=== PATIENT | female | born 1950 | race Caucasian/White ===

== ENCOUNTER 2016-10-04 11:46 | Emergency (ER) | payer OTHER, MEDICARE, MEDICAID ==
[~2016-10-04] VITALS: Ht 167.6 cm; Wt 70.0 kg
[~2016-10-04 11:46] MED LIST: ASPI-378 PO; ATEN50TA7 PO; CLOP75TA14 PO; FOL1 PO; HYDR1TAB69 PO; ISOS60TA PO; PRO20 PO; ROSU40TA PO
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
[2016-10-04] MEDS ORDERED: HYDROmorphone 0.5 mg/0.5 mL iSecure Syringe IVPUSH PRN (12:05)
[2016-10-04] MEDS ORDERED: Ondansetron 2 mg/mL 2 mL Inj IVPUSH PRN (12:05)
[2016-10-04 12:18] LABS: BASOPHILS % (AUTO) 0.4 % (0-3); EOSINOPHILS % (AUTO) 2.2 % (0-5); MONOCYTES % (AUTO) 5.9 % (4-12); Mean Corpuscular Hemoglobin 30.9 pg (27.0-35.0); Mean Corpuscular Volume 97.8 fL (81-100); NEUTROPHILS % (AUTO) 64.9 % (40-74); Platelet Count 253 bil/L (150-400)
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
[2016-10-04 12:31] LABS: INR 0.91 ratio
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
[2016-10-04 13:06] LABS: TROPONIN T < 0.010 ug/L (0.0-0.011)
[2016-10-04] MEDS ORDERED: HYDROcodone-APAP 5-325 mg Tablet PO ONE (13:25)
[2016-10-04] MEDS ORDERED: HYDR-3090 PO (14:18)
== END 2016-10-04 14:30 | disposition home or self-care (01) ==
LOC: SED 11:46 → EDBD 11:46 → SED 14:30
DX: S23.29XA Dislocation of other parts of thorax, initial encounter (principal); S16.1XXA Strain of muscle, fascia and tendon at neck level, initial encounter; S51.012A Laceration without foreign body of left elbow, initial encounter; V43.52XA Car driver injured in collision with other type car in traffic accident, initial encounter; Y93.89 Activity, other specified; Y92.410 Unspecified street and highway as the place of occurrence of the external cause; Y99.8 Other external cause status; I10 Essential (primary) hypertension; E78.5 Hyperlipidemia, unspecified; Z90.710 Acquired absence of both cervix and uterus; Z85.41 Personal history of malignant neoplasm of cervix uteri; Z95.1 Presence of aortocoronary bypass graft; Z79.82 Long term (current) use of aspirin; Z79.899 Other long term (current) drug therapy

== ENCOUNTER 2017-01-04 13:42 | Inpatient (IN) | payer MEDICARE, MEDICAID ==
[~2017-01-04] VITALS: Ht 160 cm; Wt 61.2 kg
[~2017-01-04 13:42] MED LIST changes: +HYDR-3090 PO
[2017-01-04 13:50] VITALS: BP 83/51; PULSE 69; RESP 15; O2SAT 97
--- NOTE | 2017-01-04 14:08 | ED.REPORT ---
HPI-Abd Pain F 40 and Over Date of Service Jan 04, 2017 ED Provider: Donell Wilson MD The pt is a 66 y/o female with a hx of ischemic heart disease s/p CABG, hypertension, dyslipidemia, and renal insufficiency and cervical cancer (with urostomy bag) who presents to the ED complaining of decreased urine output for the last 2 weeks. Associated sx include dark urine, back pain, nausea, lack of appetite and fluid intake and unintentional weight loss. The pt lost around 60 pounds in the last 6-8 months. She denies fever, chills, cough, shortness of breath, chest pain and lower extremity edema. The pt is not experiencing any pain or discomfort in the ED. Nursing Notes Stated Complaint: POSS KIDNEY ISSUES Chief Complaint: Female Abdominal Pain Nursing Notes Reviewed: Yes (Med[facility], meds not reconciled) Allergies: Coded Allergies: No Known Allergies (Verified Allergy, Unknown, 01/04/17) Uncoded Allergies: No Known Allergies (Allergy, Unknown, 12/17/03) Scheduled Alendronate Sodium (Fosamax) 70 Mg Tablet 70 MG PO WEEKLY Aspirin-Expunged Drug, Do Not Renew! (Aspirin-Expunged Drug, Do Not Renew!) 81 Mg Tablet.dr 81 MG PO DAILY Atenolol-Expunged Drug, Do Not Renew! (Atenolol-Expunged Drug, Do Not Renew!) 50 Mg Tablet 25 MG PO DAILY Atorvastatin (Lipitor) 80 Mg Tablet 80 MG PO DAILY Cholecalciferol (Vitamin D3) (Vitamin D3) 1,000 Unit Tab.chew 1,000 UNIT PO DAILY Clopidogrel-Expunged Drug, Do Not Renew! (Plavix-Expunged Drug, Do Not Renew!) 75 Mg Tablet 75 MG PO DAILY FLUoxetine-Expunged Drug, Do Not Renew! (FLUoxetine-Expunged Drug, Do Not Renew! ) 20 Mg Capsule 20 MG PO BID Memantine (Namenda) 10 Mg Tablet 10 MG PO BID Omeprazole (Omeprazole) 20 Mg Capsule.dr 20 MG PO BID Scheduled PRN Naproxen Sodium (Aleve) 220 Mg Capsule 220 MG PO DAILY PRN PRN For Pain General Time Seen by MD: 14:07 Chief Complaint Other (decreased urinary output) Hx Obtained From: Patient Arrived By: Walk-in Sudden in Onset?: No Onset Occurred: More than a week ago... 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 Past Medical History Chronic back pain Hypertension Ischemic heart disease s/p CABG Dyslipidemia Cervical cancer s/p hysterectomy and radiation - complicated by damage to her bladder which lead to a cystectomy and ileal conduit formation Renal insufficiency Reports: Coronary artery disease, Hyperlipidemia, Hypertension Past Surgical History CABG Hysterectomy Cystectomy and ileal conduit formation Family History Noncontributory Smoking History Never Smoker Social History Alcohol Use: Denies alcohol use Other Social History: Good social support, Local resident Ambulatory Status Independent Review of Systems Reports: dark urine Reports: lack of appetite Reports: unintentional weight loss Constitutional: Denies: Chills, Fever Respiratory: Denies: Shortness of breath Cardiovascular: Denies: Chest pain, Edema GI: Reports: Nausea Female: Reports: Urination decreased Musculoskeletal: Reports: Back pain Complete sys rev & neg: except as marked. Physical Exam Vital Signs Vital Signs (First) Date Time Temp Pulse Resp B/P Pulse Ox O2 Delivery O2 Flow Rate FiO2 01/04/17 13:50 36.5 69 15 83/51 97 Room Air Initial VS: Reviewed, Vital signs abnormal (hypotensive) General/Constitutional: Awake, Alert, Well appearing, Cooperative, Not toxic appearing No anasarca Not diaphoretic Respiratory / Chest: Atraumatic, Breath sounds NL, Breath sounds = bilat, No respiratory distress, No rales, No rhonchi, No wheezing Cardiovascular: Regular rhythm, Heart sounds NL, No gallop, No murmurs, No rubs Heart Rate / Rhythm: Positive: Bradycardia Decreased pulses in all extremities Abdomen: Atraumatic, Soft, Non-tender, No guarding, No rebound Back: Atraumatic, Full range of motion, Painless range of motion ENT: Atraumatic, Airway patent, Pharynx NL Mouth: Positive: Mucous membranes dry Skin: Atraumatic, Color NL, No rash, Warm, Dry Color / Condition: Positive: Skin turgor poor Female Genitourinary: Exam deferred Urostomy draining clear urine on the right side of the abdomen Interpretation & Diagnostics PROCEDURE: CT CHEST, ABDOMEN AND PELVIS WITHOUT CONTRAST ([id number]) IMPRESSION: 1. No pulmonary lesions to suggest primary malignancy or metastases. 2. Status post cystectomy with right lower quadrant ileal conduit. Mild bilateral hydroureteronephrosis is presumably secondary to vesicoureteral reflux. Bilateral perinephric inflammatory fat stranding may suggest pyelonephritis in the appropriate clinical setting. 3. Multiple small dependent calcified gallstones. 4. Short segment 4.1 x 3.2 cm left eccentric infrarenal abdominal aortic aneurysm. 5. Nonacute L1 inferior endplate osteoporotic compression fracture, with moderate to severe height loss, as well as bilateral nonacute insufficiency fractures around the sacroiliac joints, and scattered bilateral posterior rib fractures. Dictated by: Blue Garcia M.D. on 01/04/2017 at 17:19 Approved by: Blue Garcia M.D. on 01/04/2017 at 17:33 Lab Results Interpretation Result Diagram: 01/04/17 1410 01/04/17 1410 Test 01/04/17 14:10 01/04/17 14:18 White Blood Count 10.4th/mm3 (3.8-10.1) Red Blood Count 3.99mil/mm3 (3.90-5.20) Hemoglobin 12.3g/dL (12.0-15.6) Hematocrit 37.2% (35.0-46.0) Mean Corpuscular Volume 93.2fL (81-100) Mean Corpuscular Hemoglobin 30.8pg (27.0-35.0) Mean Corpuscular Hemoglobin Concent 33.1% (32.0-37.0) Red Cell Distribution Width 14.6% (12.3-15.4) Platelet Count 288bil/L (150-400) Neutrophils (%) (Auto) 66.6% (40-74) Lymphocytes (%) (Auto) 25.2% (14-46) Monocytes (%) (Auto) 6.4% (4-12) Eosinophils (%) (Auto) 1.4% (0-5) Basophils (%) (Auto) 0.2% (0-3) Sodium Level 132mEq/L (134-144) Potassium Level 4.0mEq/L (3.5-5.2) Chloride Level 102mEq/L (97-108) Carbon Dioxide Level 13mmol/L (18-29) Blood Urea Nitrogen 60mg/dL (8-27) Creatinine 1.99mg/dL (0.57-1.00) Estimat Glomerular Filtration Rate 36mL/min (>59) Glucose Level 103mg/dL (60-99) Lactic Acid Level 1.2mmol/L (0.4-2.0) Calcium Level 9.8mg/dL (8.5-10.1) Total Bilirubin 0.4mg/dL (0.0-1.2) Aspartate Amino Transf (AST/SGOT) 17U/L (0-50) Alanine Aminotransferase (ALT/SGPT) 11U/L (0-32) Alkaline Phosphatase 113U/L (25-165) Total Creatine Kinase 36U/L (21-215) Total Protein 8.2g/dL (6.4-8.4) Urine Color Bloody (YELLOW) Urine Appearance Cloudy (CLEAR,HAZY) Urine pH 9.0 (5.0-8.0) Urine Specific Sharps 1.005 (1.003-1.035) Urine Protein 100mg/dL (NEG,TRACE) Urine Glucose (UA) Negativemg/dL (NEGATIVE) Urine Ketones Negativemg/dL (NEGATIVE) Urine Occult Blood Small (NEGATIVE) Urine Nitrite Positive (NEGATIVE) Urine Bilirubin Negative (NEGATIVE) Urine Urobilinogen Normalmg/dL (NORMAL) Urine Leukocyte Esterase Large (NEGATIVE) Urine RBC 0-2/hpf (0-2) Urine WBC 0-5/hpf (0-5) Urine Epithelial Cells Occasional/hpf (NONE-MOD) Urine Crystals Triple phosphate Urine Bacteria Many/hpf (NONE-FEW) Urine Hyaline Casts Occasional/lpf (NONE) Urine Granular Casts None seen (NONE SEEN) Urine Waxy Casts None seen (NONE SEEN) Urine Red Blood Cell Casts None seen (NONE SEEN) Urine White Blood Cell Casts None seen (NONE SEEN) Urine Mucus Present (None Seen) Urine Trichomonas None seen (NONE SEEN) Urine Yeast None (NONE SEEN) Urinalysis Comment Amorphous sediment Urine Culture Reflexed Indicated Lab Results Interpretation: Anion Gap = 17 CBC normal CMP moderate on and I gap acidosis, new renal insufficiency Lactic acid normal UA no white cells, multiple other markers-but is from the urostomy bag, so awaiting culture ECG Interpretation ECG Interpretation: Sinus bradycardia. Rate 54. No signs of hyperkalemia Abnormal R wave progession Time: 14:30 Interpreted by: ED physician Re-Eval/Medical Decision Med Decision/Clinical Course This is a 66-year-old female smoker who presents complaining of an unintentional 60 pound weight loss in 3 months followed by decreased urostomy output over the past week with global weakness and anorexia. She denies fevers chills, nausea vomiting, diarrhea. Presyncope weakness, dark urine and markedly decreased output that she normally and at the urostomy bag 2-5 times a day is now down to less than 1, family's increasing concern advised that she come in. She contacted her PCP is referred to the emergency department. Arrival she is noted be mildly hypotensive, but lying supine she states she has no complaints she just feels tired all the time. He clinically appears mildly dehydrated Mucous membranes. Lungs are clear, heart tones normal. Her urostomy is draining clear urine-is not overtly dark here. Abdomen is soft and nontender. She has slightly decreased skin turgor, no anasarca or peripheral edema is appreciated. The patient given hypotension is receiving some IV fluids. Clinically she appears dehydrated-although I am unable to get much of a history besides mild anorexia although, by significant and acute and unintentional weight loss. Lab work reveals a new renal failure and moderate metabolic acidosis that is non- anion gap. There is receiving IV fluids and her blood pressures improving. A noncontrast chest abdomen pelvis is being obtained given the marked weight loss and dehydration evaluate for the potential for malignancy or additional consultations. Severity of the patient's symptoms, hypertension, renal insufficiency the plan is admission for further hydration and evaluation. Nephrology consultation is being obtained as they are ready follows patient beforehand for history of some renal insufficiency. The case is discussed with Dr. Donaldson. The patient's being admitted to the hospitalist service. Source of Hx: Old records Re-Evaluation/Progress : Time of Eval: 14:57 Re-Evaluation/Progress Note: Rechecked pt. Discussed lab results, imaging results,diagnosis and plan to admit. Pt understands and agrees with the plan for admission. All questions addressed. Consultation #1: Referral / Consult Name: Rasta Donaldson DO Consulted With: Nephrology Call Returned at: 14:55 Sample Stitcher: Will see patient, Agrees with eval, Agrees with plan Consultation #2: Referral / Consult Name: Antonio Damon MD Consulted With: Hospitalist Call Returned at: 15:31 Sample Stitcher: Will see patient, Agrees with eval, Agrees with plan, Accepts admit Counseled Regarding: Diagnosis, Lab results, Need for admission Discharge & Departure Primary Impression: Acute renal insufficiency Additional Impressions: Hypotension Hypotension type: unspecified hypotension type Qualified Code: I95.9 - Hypotension, unspecified Dehydration Unintentional weight loss Disposition: ADMITTED TO HOSPITAL Discharge Condition All VS Reviewed: Yes Referrals: Yosvany Patel MD (PCP) Scribe Attestation Portions of this note were transcribed by Jeny Gamez. I,, personally performed the history, physical exam and medical decision-making;I reviewed and confirmed the accuracy of the information in the transcribed note. Signed by Rik Cardoso. 01/04/17 copies to: Yosvany Patel MD, Matthew F MD Jan 04, 2017 14:08 Jeny Gamez Jan 04, 2017 14:17
[2017-01-04] MEDS ORDERED: 0.9% Sodium Chloride 1,000 ML IV ONE (14:15)
[2017-01-04 14:21] LABS: BASOPHILS % (AUTO) 0.2 % (0-3); EOSINOPHILS % (AUTO) 1.4 % (0-5); MONOCYTES % (AUTO) 6.4 % (4-12); Mean Corpuscular Hemoglobin 30.8 pg (27.0-35.0); Mean Corpuscular Volume 93.2 fL (81-100); NEUTROPHILS % (AUTO) 66.6 % (40-74); Platelet Count 288 bil/L (150-400)
[2017-01-04 14:46] LABS: APPEARANCE,URINE CLOUDY (CLEAR,HAZY); COLOR,URINE BLOODY (YELLOW); OCCULT BLOOD,URINE SMALL (NEGATIVE); UROBILINOGEN,URINE NORMAL (NORMAL)
[2017-01-04 15:04] VITALS: BP 98/45; PULSE 60; RESP 17; O2SAT 98
[2017-01-04] MEDS ORDERED: CHOL10008 PO (15:21)
[2017-01-04] MEDS ORDERED: NAPR220C11 PO (15:21)
[2017-01-04] MEDS ORDERED: NAM10 PO (15:21)
[2017-01-04] MEDS ORDERED: ALEN70TA2 PO (15:28)
[2017-01-04] MEDS ORDERED: OMEP20CA11 PO (15:28)
[2017-01-04] MEDS ORDERED: ATOR80TA PO (15:28)
[2017-01-04] MEDS ORDERED: Alum-Mag Hydrox-Simeth 30 mL Suspension PO PRN (15:50)
[2017-01-04] MEDS ORDERED: Polyethylene Glycol (PEG) 17 Gm Powder PO PRN (15:50)
[2017-01-04] MEDS ORDERED: Ondansetron 2 mg/mL 2 mL Inj IVPUSH PRN (15:50)
[2017-01-04] MEDS ORDERED: 0.9% Sodium Chloride 500 ML IV ONE (15:50)
[2017-01-04] MEDS: 0.9% Sodium Chloride 1,000 ML IV SCH ×2 (16:10→23:07)
[2017-01-04 16:13] VITALS: BP 99/46; PULSE 53; RESP 17; O2SAT 98
--- NOTE | 2017-01-04 16:21 | PCM.HPMED ---
Subjective Date of Service Jan 04, 2017 Primary Provider: Admitting Physician: Antonio Damon MD Primary Care Physician: Yosvany Patel MD Attending Physician: Antonio Damon MD Chief Complaint: Weight loss and weakness Coffee-colored urine History of Present Illness: 66-year-old female with history of chronic nicotine dependence, postconcussive syndrome with memory loss, ischemic heart disease s/p CABG 2, hypertension, dyslipidemia, chronic kidney disease stage IIIB, and history of cervical cancer s/p hysterectomy and radiation with damage to her bladder leading to cystectomy with urinary diversion who presents to emergency department due to decreasing coffee colored urine output has been occurring for the last 2-3 weeks. Patient' s is the main historian, and her presentation to the emergency department today is at his request due to duration and progression of symptoms. Patient also endorses back pain, nausea, prolonged anorexia for 2 weeks, and overall weight loss of 60 pounds over the last 2 years, with 15-20 pounds loss in the last 3 months. Patient also states that she been feeling progressively weaker and dizzy. She denies fever, chills, chest pain, shortness of breath, and lightheadedness, as well as denying new onset rash.. Patient has been on statin for at least 2 years of his first episode of coffee colored urine she has had. Notably she denies joint or diffuse muscle aches. Patient sees Dr. Waters as a urologist, with plans for contrast x-ray, urinary tract, and retroperitoneal ultrasound though ordered 2 days ago but have not yet been completed. Patient does not have a clinical account liaison. Patient has become more confused lately and it is clear whether the patient is taking the appropriate medications. In the emergency department, blood work revealed a very mild leukocytosis without shift, creatinine of 1.99 with a baseline of 1.27, and mild metabolic acidosis. UA appeared bloody and was positive for blood but without RBCs, also noted crystals, and elevations of leukocyte esterase and nitrate. CT of the abdomen is ordered and is currently pending. Blood and urine cultures were obtained. Review of Systems: Complete review of systems performed; pertinent positives and negatives per history of present illness, all other systems reviewed and are negative Allergies Coded Allergies: No Known Allergies (Verified Allergy, Unknown, 01/04/17) Uncoded Allergies: No Known Allergies (Allergy, Unknown, 12/17/03) Home Medications Alendronate Sodium (Fosamax) 70 Mg Tablet 70 MG PO WEEKLY Aspirin-Expunged Drug, Do Not Renew! (Aspirin-Expunged Drug, Do Not Renew!) 81 Mg Tablet. 81 MG PO DAILY Atenolol-Expunged Drug, Do Not Renew! (Atenolol-Expunged Drug, Do Not Renew!) 50 Mg Tablet 25 MG PO DAILY Atorvastatin (Lipitor) 80 Mg Tablet 80 MG PO DAILY Cholecalciferol (Vitamin D3) (Vitamin D3) 1,000 Unit Tab.chew 1,000 UNIT PO DAILY Clopidogrel-Expunged Drug, Do Not Renew! (Plavix-Expunged Drug, Do Not Renew!) 75 Mg Tablet 75 MG PO DAILY FLUoxetine-Expunged Drug, Do Not Renew! (FLUoxetine-Expunged Drug, Do Not Renew! ) 20 Mg Capsule 20 MG PO BID Memantine (Namenda) 10 Mg Tablet 10 MG PO BID Omeprazole (Omeprazole) 20 Mg Capsule. 20 MG PO BID Naproxen Sodium (Aleve) 220 Mg Capsule 220 MG PO DAILY PRN PRN For Pain PMH Chronic back pain Hypertension Ischemic heart disease s/p CABG 2 in 2003 Cervical cancer s/p hysterectomy and radiation - complicated by damage to her bladder which lead to a cystectomy and ileal conduit formation in 2002 Hyperlipidemia Surgical History CABG 2004 Hysterectomy 2003 Cystectomy and ileal conduit formation 2002 Family History Father and paternal grandfather both of cancer Mother of cardiac disease in her 80s Social History Hx Alcohol Use: Yes (not since new 2008) Hx Substance Use: No Hx Tobacco Use: Yes (51 years) Smoking Status: Never Smoker Exam Vital Signs Vital Sign - Last Date Time Temp Pulse Resp B/P Pulse Ox O2 Delivery O2 Flow Rate FiO2 01/04/17 15:04 60 17 98/45 98 Room Air 01/04/17 13:50 36.5 Exam General: Pleasant, apathetic appearing female of stated age HEENT: PERRLA, EOMI, nonicteric, membranes dry; no JVD Lymph: No lymphadenopathy Cardio: Regular rate and rhythm no murmurs rubs or gallops Respiratory: CTA bilaterally, no wheezes, no crackles Abdomen: Soft, positive bowel sounds, nontender, nondistended Extremities: No edema, sensation intact, possible [id number] nails Psych: Seems apathetic Neuro: CN II through XII grossly intact, sensation intact throughout Skin: No rash Lab and Diagnostics Result Diagram: 01/04/17 1410 01/04/17 1410 X-Rays, CTs and MRIs CT abdomen/pelvis pending 12-lead ECG Sinus bradycardia at 54 Assessment & Plan 66-year-old female with history of chronic nicotine dependence, postconcussive syndrome with memory loss, ischemic heart disease s/p CABG 2, hypertension, dyslipidemia, chronic kidney disease stage IIIB, and history of cervical cancer s/p hysterectomy and radiation with damage to her bladder leading to cystectomy with urinary diversion who presents to emergency department due to decreasing coffee colored urine output has been occurring for the last 2-3 weeks. acute on chronic kidney disease stage IIIB with mild metabolic acidosis; present on admission; ongoing -Likely due to prerenal azotemia or, due to her smoking, concerning for RCC; was recently evaluated by urology who did not feel this was an obstructive issue -Patient's worsening kidney failure with coffee colored urine without RBCs in the sample, while on statin, is concerning for possible mild rhabdo or inflammatory myopathy -SPEP, CK -Renal ultrasound -Nephrology consult -Urine microscopy -2 L in the ED and another half liter on floor -Continue at 100 mL an hour for now -Patient also has naproxen at home although she is unclear on how much she is taken; hold all NSAIDs CAD status post CABG 2; present on admission; ongoing -Patient unable to state what she was on; CABG was performed 2003 -Plavix as an patient's med list this will be confirmed and then continued -Continue aspirin -Consider echo if signs of fluid overload Hypotension; stable -Patient presents with low blood pressure that response to fluids -2 L in the ED and another half liter on floor -Continue at 100 mL an hour for now -We will watch for fluid overload as patient is only 58 kg -Hold home atenolol Postconcussive syndrome with memory loss-continue memantine Hyperlipidemia-old atorvastatin Depression/anxiety-continue Prozac Osteoporosis-hold Fosamax due to low GFR History of cervical cancer with hysterectomy and bladder resection-monitor urine output Disposition: Patient is being admitted to inpatient status with expected length of stay greater than two midnights due to to severity of presentation, duration of treatment, and risks of adverse events disposition Full code Pain Evaluation: Adequate Pain Control Resuscitation Status: CPR: Attempt Resuscitation Attending Statement The patient was seen and examined together with Dr. Melvin on 01/04/2017 and I agree with the history, exam and plan as outlined in the note above. . Keanu Melvin DO Jan 04, 2017 16:21 Antonio Damon MD Jan 04, 2017 20:01
[2017-01-04] MEDS ORDERED: Heparin 5,000 Unit/mL Inj SUBQ SCH (16:30)
[2017-01-04 17:17] VITALS: BP 104/49; PULSE 52; RESP 19; O2SAT 98
[2017-01-04 17:25] VITALS: PULSE 47
--- NOTE | 2017-01-04 17:35 | DRSVH ---
PROCEDURE: CT CHEST, ABDOMEN AND PELVIS WITHOUT CONTRAST ([id number]) INDICATIONS: 66 year-old female with new renal failure, 60 pound weight loss, and tobacco use. TECHNIQUE: After the administration of oral contrast, 5 mm thick sections acquired from the lung apices to the s ymphysis pubis. 5 mm thick coronal and sagittal reformats acquired, with additional 7 mm coronal MIP reformats through the lungs. For radiation dose reduction, the following was used: automated expos ure control, adjustment of mA and/or kV according to patient size. COMPARISON: Outside [facility], CT, CT LUMBAR SPINE WO CON, 06/29/2015, 16:26. FINDINGS: Image quality: Excellent. CHEST: Lungs and pleura: No acute pulmonary opacities. There is scattered bibasilar pulmonary scarring. No pulmonary nodules or masses. No pleural effusions or pneumothorax. Central and peripheral airways a re patent are normal in caliber. Mediastinum: Heart size is normal, status post coronary artery bypass grafting. No pericardial effu seven. No mediastinal adenopathy by CT size criteria. Thoracic aorta and central pulmonary arteries are normal in size. Esophagus is normal in caliber. No hiatal hernia. Chest wall: No axillary or supraclavicular adenopathy by size criteria. Thyroid gland is normal in size. ABDOMEN: Solid organs: Liver and spleen are normal in size. Gallbladder contains multiple small dependent ca lcified gallstones. Pancreas is normal in contours. No adrenal nodules. Both kidneys are normal in size, with mild bilateral hydroureteronephrosis and perinephric inflammatory fat stranding. No kidne y stones. 2.6 cm anterolateral right renal cortical partially exophytic simple cyst is present. Peritoneum and bowel: Small and large bowel loops are normal in caliber and wall thickness. No free fluid or air. Nodes and vessels: No retroperitoneal or mesenteric adenopathy by size criteria. There is a short s egment left eccentric infrarenal abdominal aortic aneurysm, measuring 4.1 x 3.2 cm in axial dimension s. Inferior vena cava is normal in morphology. Miscellaneous: No ventral hernias. PELVIS: Genitourinary: The patient is status post cystectomy with right lower quadrant ileal conduit. Miscellaneous: No inguinal hernias or adenopathy. Bones: No suspicious bony lesions. No acute vertebral body compression fractures. There is nonacute L1 inferior endplate compression fracture, with up to 80% height loss. There is nonacute compression fracture involving the S1 superior endplate. There is grade 1 L5-S1 spondylolisthesis, secondary to facet joint degeneration. Several bilateral nonacute posterior rib fractures are present. There is bi lateral irregular sclerosis around the sacroiliac joints, consistent with nonacute healed insufficien cy fractures of the sacral wings and medial iliac bones. IMPRESSION: 1. No pulmonary lesions to suggest primary malignancy or metastases. 2. Status post cystectomy with right lower quadrant ileal conduit. Mild bilateral hydroureteronephros is is presumably secondary to vesicoureteral reflux. Bilateral perinephric inflammatory fat stranding may suggest pyelonephritis in the appropriate clinical setting. 3. Multiple small dependent calcified gallstones. 4. Short segment 4.1 x 3.2 cm left eccentric infrarenal abdominal aortic aneurysm. 5. Nonacute L1 inferior endplate osteoporotic compression fracture, with moderate to severe height lo ss, as well as bilateral nonacute insufficiency fractures around the sacroiliac joints, and scattered bilateral posterior rib fractures. Dictated by: Blue Garcia M.D. on 01/04/2017 at 17:19 Approved by: Blue Garcia M.D. on 01/04/2017 at 17:33
--- NOTE | 2017-01-04 18:11 | NUR ---
Admit Patient arrived in her room after 1700 day. Patient was awake and oriented X3. She denied having any pain or discomfort. Urostomy bag to gravity drain with larry, cloudy and strong smelling urine. Empted 450ml of urine out of urostomy bag on arrival to her room. UA was done in ED. Audible crackles at lung bases 1/3 up posterior IV changed to SL- patient was taking PO well at eh time- continue assessment.
[2017-01-04 21:56] VITALS: BP 86/52; PULSE 52; RESP 18; O2SAT 98
[2017-01-05] VITALS (10 sets, daily range): BP systolic 70–90; BP diastolic 42–50; PULSE 48–65; RESP 15–16; O2SAT 94–99
[2017-01-05] MEDS: 0.9% Sodium Chloride 1,000 ML IV SCH ×4 (02:07→19:13)
[2017-01-05 02:41] LABS: BASOPHILS % (AUTO) 0.3 % (0-3); EOSINOPHILS % (AUTO) 2.9 % (0-5); MONOCYTES % (AUTO) 6.9 % (4-12); Mean Corpuscular Hemoglobin 30.4 pg (27.0-35.0); Mean Corpuscular Volume 94.9 fL (81-100); NEUTROPHILS % (AUTO) 53.2 % (40-74); Platelet Count 210 bil/L (150-400)
[2017-01-05 03:16] LABS: Magnesium 2.1 mg/dL (1.6-2.6); Phosphorus 3.5 mg/dL (2.5-4.9)
[2017-01-05] MEDS ORDERED: 0.9% Sodium Chloride 1,000 ML IV ONE ×2 (03:40→23:35)
--- NOTE | 2017-01-05 06:25 | NUR ---
Hypotension On assessment BP was 86/52, continued Hypotension, Dr. Melvin notified and at bedside. Asymptomatic. Manual B/P - Rt arm 78/48 Lft arm 74/52 Apical pulse 50. IV fluids started, 1 L bolus then 125/hr. Pt. has Urostomy in place, and self manages. Pt. postive memory loss, niece at bedside for supportive care. Cooperative, indicates not further needs at this time. Rested with eyes closed, indicates no further needs at this time. Tele: SR 50. Report given to on coming RN.
--- NOTE | 2017-01-05 12:04 | NUR ---
Case Management: [facility] delivered and explained. Signed original placed in chart. Copy left at bedside. Allie Hoffman RN
--- NOTE | 2017-01-05 12:17 | DRSVH ---
PROCEDURE: US RENAL SONOGRAM INDICATIONS: Poss RCC TECHNIQUE: Real-time scanning was performed of the kidneys and bladder, with image documentation. COMPARISON: [facility], CT, CT CHEST ABD PELVIS WO CON, 01/04/2017, 16:39. FINDINGS: Kidneys: Kidneys are normal in size. Right kidney measures 8.7 cm long; left kidney measures 9.5 cm long. Right renal cortical thickness is 1.2 cm; left renal cortical thickness is 1.2 cm. Renal cor tical echotexture is normal. No hydronephrosis or nephrolithiasis. No suspicious solid mass lesions . Right renal cortical cyst present measuring roughly 24 mm. Bladder: Prior cystectomy with urostomy. Miscellaneous: No free pelvic fluid. IMPRESSION: Small right renal cyst otherwise grossly normal appearance of the kidneys bilaterally. Dictated by: Paddy RAO Interpreted: Minoo Vizcarra MD on 01/05/2017 at 10:03 Approved by: Minoo Vizcarra MD, PhD on 01/05/2017 at 12:14
--- NOTE | 2017-01-05 13:54 | CONS ---
[address] [address] CONSULTATION REPORT PATIENT: SUSAN GARY : 1950 MR#: [id number] ADMIT: 01/04/2017 JOB ID: [id number] DATE OF SERVICE: HISTORY: Mrs. Gary is a very pleasant but unfortunate, 66-year-old, white female, who was admitted to [facility] for dehydration and acute on chronic kidney injury. Renal consultation is being sought for further evaluation and management of her acute on chronic kidney disease. She has a history of cervical cancer for which she underwent a hysterectomy and radiation therapy about 17 years ago. She subsequently underwent a cystotomy with development of an ileal conduit. Her baseline creatinine is about 1.23. Her states that for about the last month she has been feeling quite lethargic, anorexic, very poor oral intake, occasional diarrhea, and has been progressively weaker. In the emergency department, her BUN and creatinine were 60 and 1.99, and she had evidence of a non anion gap metabolic acidosis. Her bicarbonate at that time was 13. Much of the history has been obtained from the patient's as she has a history of a traumatic brain injury and poor short term memory. Other than the ileal conduit, she has no history of recurrent urinary tract infections, renal lithiasis, hematuria, proteinuria, hepatitis, diabetes, but she does have a history of hypertension. She also has been taking Naprosyn intermittently prior to admission. In the emergency department, her urine showed a pH of 9 with positive protein small occult blood, nitrate and leukocyte esterase. There were 0-2 RBCs per high power field and 0-5 WBCs per high power field with evidence triple phosphate crystals and many bacteria, consistent with colonization. She has been aggressively hydrated and she has had a marked improvement in her BUN and creatinine today of 51 and 1.57. PAST MEDICAL HISTORY: Significant for cervical cancer requiring a hysterectomy with followup radiation therapy and subsequent cystotomy with an ileal conduit. There is also a history of hypertension, ischemic heart disease for which she has undergone a coronary artery bypass graft in the past, hyperlipidemia and chronic back pain. SURGICAL HISTORY: Consistent for hysterectomy and ileal conduit with cystectomy as detailed above. She has also had a coronary artery bypass graft. ALLERGIES: She is not allergic food or any medication. SOCIAL HISTORY: There is an extensive history of tobacco use, but she has not smoke since 2008. There is no history of any substance abuse or alcohol use. FAMILY HISTORY: Remarkable for cardiac disease and cancer. REVIEW OF SYSTEMS: As detailed above. Otherwise, she denies a history of any fever, chills, cough, wheezing, rash, arthralgias or headaches. PHYSICAL EXAMINATION: Revealed a pale, somewhat chronically ill-appearing 66-year-old, white female, who was alert and oriented x3, in no distress at time of my evaluation. Her blood pressure was 73/44 with a pulse rate of 86. HEENT examination is remarkable for pale sclerae. Neck is supple without adenopathy, thyromegaly or jugular venous distention. Lungs are clear to auscultation. Heart is regular and rhythmical with a soft systolic murmur. Abdomen is soft, without any tenderness, rebound, guarding, masses or hepatosplenomegaly. Extremities do not show any evidence of any clubbing, cyanosis or edema. Skin turgor is still is diminished and there is no evidence of any rashes. LABORATORY EXAMINATION: This morning her hemoglobin is 9.6. White cell count, red cell indices, platelet count and differential are normal. Her sodium this morning is 141, potassium 3.7, chloride of 115, bicarbonate 13, BUN and creatinine are 51 and 1.57. Her glucose is 102 and CPK was normal. IMPRESSION: 1. Dehydration secondary to poor oral intake, vomiting and diarrhea. 2. Acute on chronic kidney injury secondary to number one plus antiinflammatories. 3. Chronic interstitial nephritis. 4. Metabolic acidosis which appears to be multifactorial. 5. Likely colonization of her urinary tract system. RECOMMENDATION: I would like to continue her on her IV fluids. I would also like to add oral sodium bicarbonate tablets. I would also like to see her renal ultrasound, and we also ordered a serum protein electrophoresis. I would like to otherwise continue her on her current medication. Once again, I would like to thank you for allowing me to participate in the care of this most pleasant and interesting patient. I will be following her closely with you.
[2017-01-05] MEDS ORDERED: 0.9% Sodium Chloride 250 ML IV ONE (14:25)
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
--- NOTE | 2017-01-05 17:11 | DRSVH ---
PROCEDURE: X-RAY COMPLETE BONE SURVEY ([id number]) INDICATIONS: eval for multiple myeloma TECHNIQUE: Multiple views obtained of various bony structures as described below. COMPARISON: Outside Film, RG, PELVIS 1 OR 2VW , 6, 9:00. [facility] [place], CR, SPINE THORACOLUMBAR 2VW, 6, 15:31. Outside Film, RG, SPINE LUMB 2 OR 3VW , 07/03/2015, 10:00. [facility], CT, CT CHEST ABD PELVIS WO CON, 01/04/2017, 16:39. FINDINGS: Skull (lateral): No suspicious bony lesions. No fractures. Thoracic spine (AP, lateral): No suspicious bony lesions. No acute vertebral body compression fract ures. Multilevel degenerative changes and osteopenia. Lumbar spine (AP, lateral): No suspicious bony lesions. Moderate chronic L1 compression fracture un changed from prior thoracolumbar spine series dated September 2015. No acute vertebral body compression fractures. Multilevel degenerative changes and osteopenia. Pelvis (AP): No suspicious bony lesions. No fractures. Overlying soft tissues appear unremarkable. Sclerotic regions again noted involving the sacroiliac joints, consistent with nonacute healed insu fficiency fractures of the sacral wings and medial iliac bones. Right and left humeri (AP): No suspicious bony lesions. No fractures. Overlying soft tissues appea r unremarkable. Shoulder joint degeneration. Right and left femurs (AP): No suspicious bony lesions. No fractures. Overlying soft tissues appea r unremarkable. Hip joint degeneration. IMPRESSION: 1. No suspicious lytic bony abnormalities identified to suggest multiple myeloma. 2. L1 compression fracture unchanged. 3. Joint degeneration present throughout the axial and appendicular skeleton. 4. Irregular sclerotic regions again seen involving posteromedial iliac bones and the right acetabula r area. Possibly related to remote radiation therapy. Also consistent with nonacute healed insufficie ncy fractures which appears unchanged. Dictated by: Paddy Evans [facility] Interpreted: Bj Leone MD on 01/05/2017 at 16:46 Approved by: Bj Leone M.D. on 01/05/2017 at 17:08
--- NOTE | 2017-01-05 18:41 | NUR ---
Hypotension Pt continues to have low BPs and is asymptomatic with it, BP 73/44 this am, double checked on both arms, MD updated. 250mL bolus of NS ordered which Pt received, BP 90/49 when checked later in the shift.
--- NOTE | 2017-01-05 23:26 | NUR ---
Hypotension: second set of vitals BP noted to be 74/45 on the left arm. 74/ 43 on the right arm- pt asymptomatic denies any lightheaded/ dizziness. MD adames paged with information- no return call at this time. Addendum: 01/05/17 at 2336 by LUAN GALVEZ RN order received for 1 L bolus to be infused over 3 hrs. Addendum: 01/06/17 at 0507 by LUAN GALVEZ RN post 1 L NS BP 87/55. Pt tolerated bolus well. no s/s of resp distress.
[2017-01-06] VITALS (8 sets, daily range): BP systolic 87–93; BP diastolic 44–57; PULSE 50–59; RESP 16–20; O2SAT 93–98
[2017-01-06 03:00] LABS: BASOPHILS % (AUTO) 0.4 % (0-3); EOSINOPHILS % (AUTO) 4.1 % (0-5); MONOCYTES % (AUTO) 7.4 % (4-12); Mean Corpuscular Hemoglobin 30.4 pg (27.0-35.0); Mean Corpuscular Volume 96.5 fL (81-100); Platelet Count 190 bil/L (150-400)
[2017-01-06 03:27] LABS: Magnesium 1.9 mg/dL (1.6-2.6)
[2017-01-06] MEDS: 0.9% Sodium Chloride 1,000 ML IV SCH (06:03)
[2017-01-06] MEDS: Dextrose 5% 0.45% NaCl 1,000 ML IV SCH ×2 (08:54→20:50)
--- NOTE | 2017-01-06 11:48 | PCM.PNNEPH ---
Subjective Date of Service Jan 06, 2017 Subjective Patient's renal function continues to improve and is back to baseline. She states that she has no new complaints of some mild anorexia. Her blood pressures for evaluation 80-90 range. Last 24-hour she has had 4185 in and 1956 with 1100 out already today. Her sodium is 146, potassium 4.1, chloride 120, bicarbonate 14, BUN and creatinine were 38 and 1.14. Renal ultrasound did not show any increased echogenicity, obstruction, or masses. There was a simple renal cyst noted. Bone survey did not show any evidence of any metastatic lesions. Exam Vital Signs Vital Sign - Last Date Time Temp Pulse Resp B/P Pulse Ox O2 Delivery O2 Flow Rate FiO2 01/06/17 10:35 50 01/06/17 07:19 36.9 16 87/47 98 Room Air Intake and Output 01/05/17 01/05/17 01/06/17 Cumulative From/Thru 15:00 23:00 07:00 01/04/17 13:50 - 01/06/17 06:16 Intake Total 2645 ml 2479 ml 8614 ml Output Total 450 ml 1100 ml 2500 ml Balance 2195 ml 1379 ml 6114 ml Intake Oral 1200 ml 536 ml 2136 ml IV Total 1445 ml 1943 ml 6478 ml Output Urine Total 950 ml Stool Total 450 ml 1100 ml 1550 ml # Voids 2 3 5 # Bowel Movements 1 1 Exam Neck is supple without adenopathy, thyromegaly, or jugular venous distention. Lungs are clear to auscultation. Heart was regular and rhythmical with a soft systolic murmur. Abdomen is soft without any tenderness rebound guarding masses or hepatosplenomegaly. Extremities do not show any evidence of any clubbing cyanosis or edema. Skin turgor skull. Lab and Diagnostics Result Diagram: 01/06/17 0235 01/06/17 0235 Microbiology Blood cultures pending at 24 hours Urine growing mixed urogenital gerardo likely colonized X-Rays, CTs and MRIs CT CHEST, ABDOMEN AND PELVIS WITHOUT CONTRAST IMPRESSION: 1. No pulmonary lesions to suggest primary malignancy or metastases. 2. Status post cystectomy with right lower quadrant ileal conduit. Mild bilateral hydroureteronephrosis is presumably secondary to vesicoureteral reflux. Bilateral perinephric inflammatory fat stranding may suggest pyelonephritis in the appropriate clinical setting. 3. Multiple small dependent calcified gallstones. 4. Short segment 4.1 x 3.2 cm left eccentric infrarenal abdominal aortic aneurysm. 5. Nonacute L1 inferior endplate osteoporotic compression fracture, with moderate to severe height loss, as well as bilateral nonacute insufficiency fractures around the sacroiliac joints, and scattered bilateral posterior rib fractures. Dictated by: Blue Garcia M.D. on 01/04/2017 at 17:19 Approved by: Blue Garcia M.D. on 01/04/2017 at 17:33 . 12-lead ECG Sinus bradycardia at 54 Additional Diagnostics US RENAL SONOGRAM IMPRESSION: Small right renal cyst otherwise grossly normal appearance of the kidneys bilaterally. Dictated by: Paddy Evans [facility] Interpreted: Minoo Vizcarra MD on 01/05/2017 at 10:03 Approved by: Minoo Vizcarra MD, PhD on 01/05/2017 at 12:14 . Plan Impression Impression 1 acute kidney injury secondary to dehydration which is resolved #2 chronic interstitial nephritis #3 mild metabolic acidosis. Recommendations #1 patient appears to be at her baseline. I would taper her fluids and allow her to eat and drink as tolerated. At this point I will sign off the case. Should there be any problems or any questions between now and her discharge please do not hesitate to contact our service. Information kind consultation. Rasta Donaldson DO Jan 06, 2017 11:48
--- NOTE | 2017-01-06 14:32 | NUR ---
NUTRITION ASSESSMENT: ASSESS: 66 YO female admitted for renal failure secondary to dehydration. Consult received as pt MD states pt admits to very poor po x several months and there is a potential concern for refeeding syndrome. Pt also reports 60 lbs wt loss x 2 years (question accuracy based on EMR review, see below)with 15-20 lbs wt loss (does appear accurate per EMR review) over the past 3 months. Currently Glucose, Mg, Phos and K+ are within normal limits and pt is eating 100% of meals at this time. PMHx: Back pain, HTN, CAD s/p CABG x 2, cervical cancer s/p hysterectomy and radiation complicated by damage to bladder requiring cystectomy and ileal conduit formation. LABS: Reviewed. Na 146, BUN 38, Cr 1.1.4, Alb 2.8. MEDS: Reviewed. GI: BM x 1 (01/06) CURRENT WT: 61.3 kg. Admit wt: 58 kg (pt was dehydrated). Wt 10/04/16: 70 kg. Wt 01/2011: 78 kg per EMR review. DIET: Heart healthy. PO 100%. EST. NEEDS: 1064-3662 kcals (25-35 kcals/kg BW), 75-90 g protein (1.2-1.5 g/kg BW) NUTRITION DIAGNOSIS: 1.) Inadequate oral intake prior to admit related to decreased appetite as evidenced by approx 12.4% wt loss x 3 months. NUTRITION INTERVENTION: 1.) No nutritional intervention at this time. Currently PO intake should be adequate to meet pt est. needs to limit weight loss and promote wt gain. Refeeding labs are currently within normal limits. 2.) Consider adding supplements should pt po intake become inadequate to meet pt est. needs. MONITOR / EVAL: PO intake, labs, weights, nutritional status. Follow per moderate nutritional risk guidelines.
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
--- NOTE | 2017-01-06 17:35 | NUR ---
Social Work Note: Brief Note/Attempted Initial Assessment Data& Assessment: SW attempted to meet with pt at bedside to discuss discharge planning, pt was on the phone, SW to return tomorrow to complete initial assessment. Zohreh Gary is a 66 year old female admitted on 01/04/2017 for renal failure. Pt has Medicare and [facility] supplemental insurance coverage and sees Yosvany Patel MD for primary care. SW to follow up with pt to complete initial assessment and assess for any unmet needs. No MD orders identified at this time. SW to continue to follow. Plan: Anticipated discharge home via POV when medically ready. SW to follow up with pt to complete initial assessment and assess for any unmet needs. No MD orders identified at this time. SW to continue to follow. MARIXA Yee
--- NOTE | 2017-01-06 19:07 | NUR ---
Hypernatremia/BPs Pt's Na+ 146 today, MDs already aware, Pt's IVF changed from NS at 125mL/Hr to D5W 1/2NS at 100mL/Hr for 1 liter, oncoming NOC RN made aware. Pt's BP remains low, Pt asymptomatic, MDs aware, Pt already on IVF, BPs this shift: 87/47, 93/57, 91/50.
[2017-01-07 03:04] VITALS: BP 95/55; PULSE 62; RESP 18; O2SAT 95
[2017-01-07 05:57] VITALS: PULSE 62
[2017-01-07] MEDS: Dextrose 5% 0.45% NaCl 1,000 ML IV SCH (06:21)
[2017-01-07 07:11] VITALS: BP 98/59; PULSE 54; RESP 16; O2SAT 97
[2017-01-07 07:42] LABS: BASOPHILS % (AUTO) 0.3 % (0-3); EOSINOPHILS % (AUTO) 4.3 % (0-5); MONOCYTES % (AUTO) 7.4 % (4-12); Mean Corpuscular Hemoglobin 30.2 pg (27.0-35.0); Mean Corpuscular Volume 96.3 fL (81-100); NEUTROPHILS % (AUTO) 61.5 % (40-74); Platelet Count 188 bil/L (150-400)
--- NOTE | 2017-01-07 09:10 | NUR ---
[facility] signed MARIXA Can
--- NOTE | 2017-01-07 10:11 | NUR ---
Social Work: Initial Assessment / Readiness for d/c Data: Pt is a 66 y/o female admitted for renal failure. Pt's PCP is Dr Patel, pt's insurance is Medicare with [facility] supp. EMR reviewed, readmit score is 4. Pt discussed in rounds, MD states pt likely to d/c today. DRUM STRAIGHTENER met with pt at bedside, role explained. Pt states she lives in [place] with her , grand niece and great grand nephew in a single story home. She occasionally uses a cane, drives, has no hx of HH or SNF, no LTC or VA benefits, and is not a caregiver. Pt has been up and independent in the room. No d/c planning needs identified at this time. Pt plans to get a ride home with her when ready to d/c. DRUM STRAIGHTENER will continue to follow if needs arise. Assessment: Pt who is independent at baseline, currently capable of self care. Occasional use of cane at baseline. Plan: Pt will d/c home via POV, likely today per MD. No d/c planning needs identified at this time. DRUM STRAIGHTENER will continue to follow if needs arise. MARIXA Can Addendum: 01/07/17 at 1014 by JENNY DAVID Amended: Links added.
[2017-01-07 10:22] VITALS: PULSE 68
--- NOTE | 2017-01-07 11:54 | PCM.DIMED ---
Bharath Bennett DO 01/07/17 1154: Discharge Instructions Date of Service Jan 07, 2017 Dates of Hospitalization Jan 04, 2017 at 15:48 Discharge Diagnosis Discharge Diagnosis Unintentional weight loss, present on admission. Active. CAD status post CABG 2, present on admission. Ongoing. Hypotension, present on admission. Stable. Multiple fractures of uncertain cause or chronicity, present on admission. Stable. Inadequate protein intake, present on admission. Active. Acute on chronic kidney disease stage IIIB with mild metabolic acidosis, present on admission. Resolved. Hyperlipidemia Depression/anxiety Osteoporosis History of cervical cancer with hysterectomy and bladder resection-monitor urine output Diet Discharge Diet: No restrictions Activity Discharge Activity: No restrictions Call your provider Call your provider for: Fever or Chills, Shortness of breath, Bleeding, Chest pain, Vomitting, Excessive diarrhea, Weakness (unilateral) Patient Instructions Patient Instructions Please be mindful to have consistent nutritionally complete meals at least 3 times per day, please drink plenty of water; at least 2 liters of water daily. Follow-up plan Please follow up with your primary care provider within 2 weeks to further discuss your condition, and order follow up diagnostic testing. Follow-up Provider: Yosvany Patel MD Follow-up with PCP in: 2 weeks Antonio Damon MD 01/07/17 1602: Discharge Instructions Attending's Statement The patient was seen and examined together with Dr. Bennett on 01/07/2017 and I agree with the history, exam and plan as outlined in the note above. . Bharath Bennett DO Jan 07, 2017 11:54 Antonio Damon MD Jan 07, 2017 16:02
--- NOTE | 2017-01-07 12:51 | NUR ---
Discharge Pt just discharged to home with family. Aspirin listed as expunged under discontinued medications, Pt had been receiving aspirin QD while in the hospital, Pt reports taking aspirin daily prior to coming into the hospital, contacted who verbalized to instruct Pt to continue taking aspirin at home, Pt instructed to continue aspirin daily. Pt given discharge educational materials on ISAC, dehydration, and hypotension. Pt's IV access D/C'd and intact. Pt and verbalized that they already had a f/u appointment with Pt's PCP next week. Pt instructed to keep up on her fluids. Pt and at bedside verbalized understanding of all discharge instructions. All belongings accompanied Pt at time of discharge.
--- NOTE | 2017-01-07 13:13 | NUR ---
Social Work: Discharge Data: Pt is on day 3 of hospitalization. EMR reviewed. D/C orders are in, disposition is home. No d/c planning needs at this time. CRULLER MAKER will continue to follow if needs arise. Assessment: Pt who is independent at baseline, currently capable of self care. Plan: Pt will d/c home via POV today. No d/c planning needs at this time. CRULLER MAKER will continue to follow if needs arise. MARIXA Can
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
--- NOTE | 2017-01-08 15:09 | DRSVH ---
[facility] [address] [place] [address] Echocardiogram Report Name: SUSAN TIRADO JStudy Date: 01/06/2017 Height: 63 in Hospital Exam Location: [facility] Weight: 124 lb Gender: Female BSA: 1.6 m2 : 1950 Age: 66 yrs BP: 70/43 mmHg Reason For Study: Hypotension Ordering Physician: [facility] Performed By: Francine Moya Referring Physician: [facility] Interpretation Summary The study quality was technically difficult. The left ventricle is normal in size. The ejection fraction is estimated to be 60-65%. The right ventricle grossly appears normal in size with probable normal systolic function. No significant valvular pathology seen. Procedure: A two-dimensional transthoracic echocardiogram with color flow and Doppler was performed. The study quality was technically difficult. Comparison is made with the echocardiogram of 04/14/2011. A contrast injection of Definity was performed to improve assessment of LV function. The patient was in normal sinus rhythm during the exam. Left Ventricle: The left ventricle is normal in size. Proximal septal thickening is noted. There is no echo evidence for significant left ventricular outflow tract obstruction. There is no thrombus. The ejection fraction is estimated to be 60-65%. There are no obvious focal wall motion abnormalities noted but poor endocardial definition reduces the sensitivity for the detection of such. E/E' ratio mildly abnormal. Right Ventricle: The right ventricle is not well visualized. The right ventricle grossly appears normal in size with probable normal systolic function. Atria: The left atrial size is normal. There has been no significant change since the previous study. The right atrium is normal in size. The thickening of interatrial septum suggests lipomatous hypertrophy. Mitral Valve: The mitral valve leaflets appear mildly thickened, but open well. The mitral valve leaflets are mildly calcified. The mitral valve chordae are thickened and/or calcified. There is mild mitral annular calcification. There is trace mitral regurgitation. Aortic Valve: The aortic valve is moderately calcified. The aortic valve is not well visualized. There is no hemodynamically significant valvular aortic stenosis. No aortic regurgitation is present. Tricuspid Valve: The tricuspid valve is normal in structure and function. There is trace tricuspid regurgitation. Pulmonary artery pressures cannot be estimated because of the lack of a measurable TR jet velocity. Pulmonic Valve: The pulmonic valve is not well visualized. There is trace pulmonic regurgitation. Great Vessels: The aortic root is normal size. The dimensions of the ascending aorta are normal. The IVC is dilated (diameter is greater than 2.1 cm) yet it collapses greater than 50% with a sniff. This suggests a right atrial pressure of 8 mm Hg. Pericardium/ Pleura There is no pericardial effusion. There is an anterior echo-free space consistent with a fat pad. There is no pleural effusion. MMode/2D Measurements & Calculations LVIDd: 4.4 cm RA long axis LVOT diam LVIDs: 3.1 cm LA A2 area: 17.6 cm FS: 29.8 % LA A4 area: 17.0 cm RA area Ao root diam IVSd: 1.1 cm LA length (vol): 5.2 cm LVPWd: 0.82 cm LA vol: 48.9 ml : 10.4 cm asc Aorta LA vol index RA vol: 21.1 mlDiam: 3.1 cm RA : 13.4 mm2 IVC diam: 2.2 cm LV mcdonald. diameter/BSA LV sys. diameter/BSA (cm/m^2): 2.8 (cm/m^2): 2.0 Doppler Measurements & Calculations Ao V2 max MV E max tevin MV E/A: 1.6 MV dec time : 149.9 cm/sec : 92.6 cm/sec Med Peak E' Tevin : 0.21 sec Ao max P.0 mmHgMV A max tevin Ao mean PG : 59.7 cm/sec E/E' med: 11.8 Lat Peak E' Tevin LVOT Max Tevin : 104.7 cm/sec E/E' lat: 8.9 E/e' average: 10.4 GUY(I,D): 2.6 cm sev ratio: 0.76 Ao V2 mean LV V1 max PG GUY indexed to BSA : 98.4 cm/sec (cm^2/m^2): 1.7 Ao V2 VTI: 32.3 cm LV V1 VTI: 24.5 cm GUY(V,D): 2.4 cm2 Reading Physician:ALLY
== END 2017-01-07 12:45 | disposition home or self-care (01) | DRG 683 ==
LOC: SED 13:42 → OBSVTOIN 15:48 → PCC 15:48
PROVIDERS: ADMIT Internal Medicine; ATTEND Internal Medicine
DX: N17.9 Acute kidney failure, unspecified (principal); E87.2 Acidosis; E46 Unspecified protein-calorie malnutrition; E87.0 Hyperosmolality and hypernatremia; E86.0 Dehydration; N18.3 Chronic kidney disease, stage 3 (moderate); I25.9 Chronic ischemic heart disease, unspecified; I95.9 Hypotension, unspecified; M80.08XS Age-related osteoporosis with current pathological fracture, vertebra(e), sequela; Z87.310 Personal history of (healed) osteoporosis fracture; F07.81 Postconcussional syndrome; Z87.820 Personal history of traumatic brain injury; R62.7 Adult failure to thrive; I25.10 Atherosclerotic heart disease of native coronary artery without angina pectoris; Z95.1 Presence of aortocoronary bypass graft; E78.5 Hyperlipidemia, unspecified; F41.8 Other specified anxiety disorders; I12.9 Hypertensive chronic kidney disease with stage 1 through stage 4 chronic kidney disease, or unspecified chronic kidney disease; Z93.6 Other artificial openings of urinary tract status; Z85.41 Personal history of malignant neoplasm of cervix uteri; Z68.23 Body mass index [BMI] 23.0-23.9, adult; N11.8 Other chronic tubulo-interstitial nephritis

== ENCOUNTER 2017-02-15 09:06 | Emergency (ER) | payer MEDICARE, MEDICAID ==
[~2017-02-15] VITALS: Ht 162.6 cm; Wt 63.6 kg
[~2017-02-15 09:06] MED LIST changes: +ALEN70TA2 PO; -ASPI-378 PO; +ATOR80TA PO; +CHOL10008 PO; -FOL1 PO; -HYDR-3090 PO; -HYDR1TAB69 PO; -ISOS60TA PO; +NAM10 PO; +NAPR220C11 PO; +OMEP20CA11 PO; -ROSU40TA PO
[2017-02-15 09:09] VITALS: BP 112/84; PULSE 65; RESP 20; O2SAT 97
--- NOTE | 2017-02-15 09:16 | ED.REPORT ---
HPI-Abd Pain F 40 and Over Date of Service Feb 15, 2017 ED Provider: Anurag Chou MD Patient is a 66 year old female with a cystectomy and ileal conduit formation s/ p bladder damage from cervical cancer who presents to the ED complaining of intermittent, cramping, mid abdominal pain for the last 3 months but is worse since this morning. She is asymptomatic upon arrival. Associated symptoms include watery diarrhea over the last week. Pt has also been experiencing a weight loss of 50 lbs over the past 6 mo without trying. She denies vomiting constipation, fever, chills, or any other symptoms. She declines any recent abx use. Nursing Notes Stated Complaint: ABDOMINAL PAIN/POSS UROSTOMY RELATED Chief Complaint: Female Abdominal Pain Nursing Notes Reviewed: Yes Allergies: Coded Allergies: No Known Allergies (Verified Allergy, Unknown, 02/15/17) Uncoded Allergies: No Known Allergies (Allergy, Unknown, 12/17/03) Scheduled Alendronate Sodium (Fosamax) 70 Mg Tablet 70 MG PO WEEKLY Atenolol-Expunged Drug, Do Not Renew! (Atenolol-Expunged Drug, Do Not Renew!) 50 Mg Tablet 25 MG PO DAILY Atorvastatin (Lipitor) 80 Mg Tablet 80 MG PO DAILY Cholecalciferol (Vitamin D3) (Vitamin D3) 1,000 Unit Tab.chew 1,000 UNIT PO DAILY Clopidogrel-Expunged Drug, Do Not Renew! (Plavix-Expunged Drug, Do Not Renew!) 75 Mg Tablet 75 MG PO DAILY FLUoxetine-Expunged Drug, Do Not Renew! (FLUoxetine-Expunged Drug, Do Not Renew! ) 20 Mg Capsule 20 MG PO BID Memantine (Namenda) 10 Mg Tablet 10 MG PO BID Omeprazole (Omeprazole) 20 Mg Capsule.dr 20 MG PO BID Scheduled PRN Hydrocodone-Acetaminophen 5-325 mg (Hydrocodone-Acetaminophen 5-325 mg) 1 Each Tablet 1 TABLET PO Q4H PRN PRN For Pain Naproxen Sodium (Aleve) 220 Mg Capsule 220 MG PO DAILY PRN PRN For Pain General Time Seen by MD: 09:14 Chief Complaint Abdominal pain Hx Obtained From: Patient, Spouse Arrived By: Walk-in Sudden in Onset?: Yes Onset Occurred: 1 - 4 hours ago Symptom Duration: Since onset Location: : Abdomen lower Quality: Painful Severity: Current: Moderate Severity: Maximum: Moderate Recent Healthcare: Recent doctor visit Similar Sx Previous: Yes Risk Factors )( AAA Risk Stratification Hypertension Smoking Risk factors reviewed Past Medical History Past Medical History Notes: [employer] Mechanic: Mendoza Urologist: Evelin Past Medical History Chronic back pain Hypertension Ischemic heart disease s/p CABG Dyslipidemia Cervical cancer s/p hysterectomy and radiation - complicated by damage to her bladder which lead to a cystectomy and ileal conduit formation Renal insufficiency Arthritis Depression anxiety Reports: Coronary artery disease, GERD, Hyperlipidemia Past Surgical History CABG Hysterectomy Cystectomy and ileal conduit formation Family History Noncontributory Smoking History Current Every Day Smoker Social History Alcohol Use: Denies alcohol use Other Social History: Good social support, Local resident Ambulatory Status Independent Review of Systems Constitutional: Reports: Recent wt loss, Denies: Chills, Fever GI: Reports: Abdominal pain, Diarrhea, Denies: Constipation, Vomiting Complete sys rev & neg: except as marked. Physical Exam Vital Signs Vital Signs (First) Date Time Temp Pulse Resp B/P Pulse Ox O2 Delivery O2 Flow Rate FiO2 02/15/17 09:09 37.2 65 20 112/84 97 Room Air Initial VS: Reviewed, Vital signs normal Head / Eyes: Atraumatic, Normocephalic Neck: Full range of motion Skin: Warm, Dry Neurologic: Alert, Oriented, Nonfocal General/Constitutional: Awake, Alert, No acute distress Respiratory / Chest: Atraumatic, Breath sounds NL, Breath sounds = bilat, No respiratory distress Cardiovascular: Heart rate NL, Regular rhythm, Heart sounds NL, No murmurs Abdomen: Soft, Non-tender urostomy present, draining clear urine, no surrounding erythema Back: No CVA tenderness Re-Eval/Medical Decision Med Decision/Clinical Course 66-year-old female with urostomy presenting with abdominal pain earlier today. It resolved prior to arrival. She reports this is chronic and occurs approximately weekly for the past year. It resolved spontaneously. She has been seen for this. Before with no clear etiology. Given her pain and resolved, patient requested to go home without any further testing with no labs or other interventions. She agrees to return immediately she has any new or worsening symptoms or recurrence of her abdominal pain. Re-Evaluation/Progress : Time of Eval: 09:33 )( Re-Eval Abdomen: Soft Re-Evaluation/Progress Note: Offered pt further workup which she declines. Discussed plan for discharge. Patient understands and agrees with plan. All questions addressed at this time. Counseled Regarding: Diagnosis, Need for follow-up, When/why to return to ED Discharge & Departure Primary Impression: Abdominal pain Abdominal location: generalized Qualified Code: R10.84 - Generalized abdominal pain Disposition: Home Discharge Condition All VS Reviewed: Yes Condition: Stable Additional Instructions: Thank you for entrusting us with your care today. You were offered further workup for your abdominal pain, but because your pain has resolved, you have decided to go home and follow up with your urologist. Call Dr. Waters's office today to schedule an appointment. Inform her office of your visit today. Follow up with your primary doctor within the next 1-2 days. Return to the emergency department if you experience worsening pain, persistent diarrhea, fevers, vomiting, or any other symptoms. If you return for persistent diarrhea, please bring a stool sample using the collection kit you have at home. Referrals: Yosvany Patel MD (PCP) Rik Attestation Portions of this note were transcribed by Bulmaro Coombs. I, Dr. Chou personally performed the history, physical exam and medical decision-making; I reviewed and confirmed the accuracy of the information in the transcribed note. Signed by: Rik Fagan, 02/15/17 copies to: Yosvany Patel MD, Ben M MD Feb 15, 2017 09:16 BULMARO COOMBS Feb 15, 2017 09:29
[2017-02-15] MEDS ORDERED: HYDR-4003 PO (09:40)
== END 2017-02-15 09:51 | disposition home or self-care (01) ==
LOC: SED 09:06
DX: R10.30 Lower abdominal pain, unspecified (principal); R63.4 Abnormal weight loss; R19.7 Diarrhea, unspecified; I11.9 Hypertensive heart disease without heart failure; I25.10 Atherosclerotic heart disease of native coronary artery without angina pectoris; K21.9 Gastro-esophageal reflux disease without esophagitis; E78.5 Hyperlipidemia, unspecified; F41.8 Other specified anxiety disorders; F17.200 Nicotine dependence, unspecified, uncomplicated; Z85.41 Personal history of malignant neoplasm of cervix uteri; Z95.1 Presence of aortocoronary bypass graft; Z90.710 Acquired absence of both cervix and uterus; Z90.6 Acquired absence of other parts of urinary tract